=== PATIENT | female | born 1940 | race Caucasian/White ===

== ENCOUNTER 2016-07-13 09:49 | Emergency (ER) | payer MEDICARE ==
[2016-08-29] MEDS ORDERED: COLACE100 MG PO (12:07)
[2016-08-29] MEDS ORDERED: ACETAMINOPHEN325 MG PO (12:07)
[2016-08-29] MEDS ORDERED: BENADRYL25 MG PO (12:07)
[2016-08-29] MEDS ORDERED: PREDNISONE 10MG10 MG PO (12:08)
[2016-08-29] MEDS ORDERED: XARELTO15 MG PO (12:08)
[2016-08-29] MEDS ORDERED: PEPCID AC20 MG PO (12:08)
[2016-08-29] MEDS ORDERED: XARELTO20 MG PO (12:09)
[2016-08-29] MEDS ORDERED: NYSTATIN SUSP1 ML/ML SSW (12:09)
[2016-08-29] MEDS ORDERED: ATROVENT (00.2 MG/ML INH (12:11)
[2016-08-29] MEDS ORDERED: XOPENEX (11.25 MG/3 PO (12:11)
[2016-08-29] MEDS ORDERED: PREVACID30 M1 PO (12:11)
[2016-08-29] MEDS ORDERED: FLEXERIL10 MG PO (12:12)
[2016-08-29] MEDS ORDERED: DICYCLOMINE HCL20 MG PO (12:12)
[2016-08-29] MEDS ORDERED: SINGULAIR10 MG PO (12:12)
[2016-08-29] MEDS ORDERED: TRAMADOL HCL50 MG PO (12:12)
[2016-08-29] MEDS ORDERED: FLONASE ALLER15.8 ML (12:12)
[2016-08-29] MEDS ORDERED: ZOFRAN4 MG PO (12:13)
[2016-08-29] MEDS ORDERED: BREO ELLIPTA 11 EACH INH (12:13)
[2016-08-29] MEDS ORDERED: LAXATIVE OF CHOICE (12:14)
[2016-09-13] MEDS ORDERED: DULERA 200 MCG8.8 GM INH (10:56)
[2016-09-13] MEDS ORDERED: VENTOLIN HFA IN18 GM INH (10:59)
[2016-09-13] MEDS ORDERED: LEVAQUIN500 MG PO (10:59)
[2016-09-13] MEDS ORDERED: MEDROL 4MG DOSEP4 MG PO (11:00)
[2016-09-13] MEDS ORDERED: CARDIZEM CD240 M1 PO (11:00)
== END 2016-07-13 12:16 | disposition home or self-care (01) ==
LOC: FER 09:49
DX: M54.5 Low back pain (principal); G89.29 Other chronic pain; I10 Essential (primary) hypertension; J45.909 Unspecified asthma, uncomplicated; Z88.0 Allergy status to penicillin
CPT/HCPCS: J1885

== ENCOUNTER 2016-08-15 12:04 | Inpatient (IN) | payer MEDICARE ==
[2016-08-15 15:08] LABS: ALBUMIN 3.5 g/dL (3.4-4.8); BILIRUBIN - TOTAL 0.3 mg/dL (0.1-1.0); CREATININE 1.1 mg/dL (0.5-1.0); GLOBULIN (CALCULATION) 2.6 g/dL (2.2-4.2); POTASSIUM 3.9 mmol/L (3.5-5.1); TOTAL PROTEIN 6.1 g/dL (6.4-8.3)
[2016-08-16 05:20] LABS: BASOPHIL 0 % (0-2); EOSINOPHIL 0 % (0-7); HCT 32.6 % (37.0-47.0); HGB 10.5 g/dl (12.5-16.0); LYMPHOCYTE 21.6 % (15-48); MCH 28.9 pg (25.0-31.0); MCHC 32.2 g/dL (32.0-36.0); MCV 89.8 fL (78.0-100.0); MONOCYTE 6.6 % (0-12); MPV 10.9 fL (6.0-9.5); NEUTROPHIL 71.8 % (41-80); PLT 170 K/uL (150-400); RBC 3.63 M/uL (4.20-5.40); RDW 16.2 % (11.5-14.0); WBC 2.4 K/uL (4.0-10.5)
[2016-08-16 05:27] LABS: INR 1.15 (0.9-1.2); PROTHROMBIN TIME 14.3 SECONDS (11.7-14.0)
[2016-08-16 05:28] LABS: PTT 38.3 SECONDS (23.2-31.4)
[2016-08-16 05:40] LABS: CREATININE 1.1 mg/dL (0.5-1.0); POTASSIUM 4.3 mmol/L (3.5-5.1)
[2016-08-18 05:58] LABS: HCT 33.2 % (37.0-47.0); HGB 10.6 g/dl (12.5-16.0); MCH 29.1 pg (25.0-31.0); MCHC 31.9 g/dL (32.0-36.0); MCV 91.2 fL (78.0-100.0); MPV 10.9 fL (6.0-9.5); RBC 3.64 M/uL (4.20-5.40); RDW 16.4 % (11.5-14.0); RETICULOCYTE COUNT 2.1 % (1.0-2.0); WBC 12.7 K/uL (4.0-10.5)
[2016-08-18 06:17] LABS: IRON 42 ug/dL (44-196); IRON % SATURATION 20 %SAT (20-50); MAGNESIUM 2.13 mg/dL (1.40-2.10); POTASSIUM 4.8 mmol/L (3.5-5.1); TIBC (TOTAL IRON + UIBC) 210 U/L (228-428); UIBC 168 ug/dL (112-346)
[2016-08-18 06:33] LABS: FOLIC ACID (SERUM) 8.9 ng/mL (5.6-45.8)
[2016-08-29] MEDS ORDERED: ACETAMINOPHEN325 MG PO (12:07)
[2016-08-29] MEDS ORDERED: BENADRYL25 MG PO (12:07)
[2016-08-29] MEDS ORDERED: COLACE100 MG PO (12:07)
[2016-08-29] MEDS ORDERED: PREDNISONE 10MG10 MG PO (12:08)
[2016-08-29] MEDS ORDERED: PEPCID AC20 MG PO (12:08)
[2016-08-29] MEDS ORDERED: XARELTO15 MG PO (12:08)
[2016-08-29] MEDS ORDERED: XARELTO20 MG PO (12:09)
[2016-08-29] MEDS ORDERED: NYSTATIN SUSP1 ML/ML SSW (12:09)
[2016-08-29] MEDS ORDERED: ATROVENT (00.2 MG/ML INH (12:11)
[2016-08-29] MEDS ORDERED: XOPENEX (11.25 MG/3 PO (12:11)
[2016-08-29] MEDS ORDERED: PREVACID30 M1 PO (12:11)
[2016-08-29] MEDS ORDERED: DICYCLOMINE HCL20 MG PO (12:12)
[2016-08-29] MEDS ORDERED: TRAMADOL HCL50 MG PO (12:12)
[2016-08-29] MEDS ORDERED: SINGULAIR10 MG PO (12:12)
[2016-08-29] MEDS ORDERED: FLEXERIL10 MG PO (12:12)
[2016-08-29] MEDS ORDERED: FLONASE ALLER15.8 ML (12:12)
[2016-08-29] MEDS ORDERED: ZOFRAN4 MG PO (12:13)
[2016-08-29] MEDS ORDERED: BREO ELLIPTA 11 EACH INH (12:13)
[2016-08-29] MEDS ORDERED: LAXATIVE OF CHOICE (12:14)
[2016-09-13] MEDS ORDERED: DULERA 200 MCG8.8 GM INH (10:56)
[2016-09-13] MEDS ORDERED: LEVAQUIN500 MG PO (10:59)
[2016-09-13] MEDS ORDERED: VENTOLIN HFA IN18 GM INH (10:59)
[2016-09-13] MEDS ORDERED: CARDIZEM CD240 M1 PO (11:00)
[2016-09-13] MEDS ORDERED: MEDROL 4MG DOSEP4 MG PO (11:00)
== END 2016-08-19 15:43 | DRG 190 ==
LOC: FER 12:04 → FMS 17:20
PROVIDERS: Internal Medicine; ADMIT Internal Medicine
DX: J44.0 Chronic obstructive pulmonary disease with (acute) lower respiratory infection (principal); I26.99 Other pulmonary embolism without acute cor pulmonale; I82.4Z2 Acute embolism and thrombosis of unspecified deep veins of left distal lower extremity; K51.90 Ulcerative colitis, unspecified, without complications; J09.X2 Influenza due to identified novel influenza A virus with other respiratory manifestations; I48.0 Paroxysmal atrial fibrillation; J44.1 Chronic obstructive pulmonary disease with (acute) exacerbation; J20.9 Acute bronchitis, unspecified; I10 Essential (primary) hypertension; K21.9 Gastro-esophageal reflux disease without esophagitis; E78.5 Hyperlipidemia, unspecified; J30.9 Allergic rhinitis, unspecified; E55.9 Vitamin D deficiency, unspecified; Z88.0 Allergy status to penicillin; Z88.8 Allergy status to other drugs, medicaments and biological substances; M70.62 Trochanteric bursitis, left hip; M70.61 Trochanteric bursitis, right hip; S76.312A Strain of muscle, fascia and tendon of the posterior muscle group at thigh level, left thigh, initial encounter; S76.311A Strain of muscle, fascia and tendon of the posterior muscle group at thigh level, right thigh, initial encounter
CPT/HCPCS: 36415; 36600; 71020; 78579; 78580; 80048; 80053; 82150; 82607; 82746; 82803; 83540; 83550; 83605; 83735; 84484; 85025; 85044; 85379; 85610; 85730; 93005; 93970; 94640; 94664; 96372; 97110; 97116; 97162; 97166; 97530; 97530-GP; A9539; A9540; G0378; J0456; J2930